=== PATIENT | female | born 1965 | race Caucasian/White ===

== ENCOUNTER 2023-11-04 21:39 | Outpatient (REF) | payer OTHER, SELFPAY ==
[2023-11-04 23:26] LABS: Microalbum Creatinine Ratio Ur 4.3 mg/g (0.0-29.9); Microalbumin Urine Random <1.3 mg/dL (<=30.0)
== END 2023-11-04 21:40 | disposition home or self-care (01) ==
LOC: LAB 21:39
PROVIDERS: Family Provider Family Medicine; PCP Nurse Practitioner Primary Care; Visit Provider Nurse Practitioner Primary Care
DX: E11.40 Type 2 diabetes mellitus with diabetic neuropathy, unspecified (principal)
CPT/HCPCS: 82043; 82570